=== PATIENT | male | born 1945 | race Caucasian/White ===

== ENCOUNTER 2016-09-07 09:37 | Inpatient (IN) | payer OTHER, MEDICARE ==
[~2016-09-07] VITALS: Ht 170.2 cm; Wt 69.0 kg
[~2016-09-07 09:37] MED LIST: AMLO10TA2 PO; APIX2.5T PO; CARV6.252 PO; DICL75TA PO; FOLI1TAB4 PO; FOLI5CAP PO; HYDR200T3 PO; LISI10TA3 PO; OXYC1TAB36 PO; POTA10TA8 PO
[2016-09-11] MEDS ORDERED: ceFAZolin 2 GM PREMIX 50 ML IV SCH (11:45)
[2016-09-11] MEDS ORDERED: METRONIDAZOLE 500 MG/100 ML ISONTONIC SOLN IV SCH (11:45)
[2016-09-11] MEDS ORDERED: INSULIN HUMAN REGULAR 1,000 UNITS/10 ML VIAL SQ PRN (12:00)
[2016-09-11] MEDS ORDERED: SODIUM CHLORID 0.9% 500 ML IV SCH (12:00)
[2016-09-11] MEDS ORDERED: ePHEDrine/NS 25 MG/5 ML SYR IV ONE (12:00)
[2016-09-11] MEDS ORDERED: ONDANSETRON HCL 4 MG/2 ML VIAL IV PUSH ONE (12:00)
[2016-09-11] MEDS ORDERED: METOPROLOL TARTRATE 25 MG TAB PO PRN (12:00)
[2016-09-11] MEDS ORDERED: NEOSTIGMINE 3 MG/3 ML SYR IV ONE (12:00)
[2016-09-11] MEDS ORDERED: LACTATED RINGER'S 1000 ML INJ 1,000 ML IV ONE (12:00)
[2016-09-11] MEDS ORDERED: PROPOFOL 200 MG/20 ML AMP IV ONE (12:00)
[2016-09-11] MEDS ORDERED: LACTATED RINGER'S 1000 ML IV SCH (12:00)
[2016-09-11 12:35] VITALS: BP 94/58; PULSE 65; RESP 18; TEMP 97.5; O2SAT 98
--- NOTE | 2016-09-11 12:47 | RADRPT ---
EXAM DATE/TIME: 09/11/2016 11:38 [place] COMPARISON: No previous studies available for comparison. INDICATIONS : Evaluate for pneumothorax, pneumonia, or communicable disease. Pre-op for colon resection MEDICAL HISTORY : Hypertension. Smoker. SURGICAL HISTORY : Port placement. ENCOUNTER: Initial ACUITY: 1 day PAIN SCORE: 0/10 LOCATION: Bilateral chest FINDINGS: A single view of the chest demonstrates the lungs to be symmetrically aerated without evidence of mas s, infiltrate or effusion. There is minimal platelike atelectasis in both lung bases. The cardiomedia stinal contours are unremarkable. There is a left-sided [id number]. Osseous structures are intact . CONCLUSION: Minimal bibasilar atelectasis. Otherwise, no acute pulmonary infiltrates. Mario Xavier MD on September 11, 2016 at 12:45 Board Certified Radiologist. This report was verified electronically.
[2016-09-11] MEDS ORDERED: ALVIMOPAN 12 MG CAPSULE ONE (13:13)
[2016-09-11 13:19] LABS: ALT (GPT) 13 U/L (12-78); ANION GAP 4 MEQ/L (5-15); AST (GOT) 17 U/L (15-37); BICARBONATE 30.8 MEQ/L (21.0-32.0); BLOOD UREA NITROGEN 5 MG/DL (7-18); CHLORIDE 107 MEQ/L (98-107); GLOMERULAR FILTRATION RATE 135 ML/MIN (>89); SODIUM (NA) 142 MEQ/L (136-145)
[2016-09-11 13:21] LABS: ALKALINE PHOSPHATASE 95 U/L (45-117); TOTAL BILIRUBIN ADULT 0.7 MG/DL (0.2-1.0)
[2016-09-11] MEDS ORDERED: BUPIVACAINE/EPINEPHRINE 0.25% PF 30 ML VIAL ONE ×2 (13:24→15:13)
[2016-09-11] MEDS ORDERED: ACETAMINOPHEN 1000 MG/100 ML VIAL IV ONE (13:41)
[2016-09-11] MEDS ORDERED: DEXAMETHASONE SOD PHOS 4 MG/ML VIAL ONE (13:41)
[2016-09-11] MEDS ORDERED: fentaNYL CITRATE 250 MCG/5 ML AMP ONE ×2 (13:41→16:51)
[2016-09-11] MEDS ORDERED: MIDAZOLAM HCL 2 MG/2 ML VIAL ONE (13:41)
[2016-09-11] MEDS ORDERED: FAMOTIDINE 20 MG/2 ML VIAL ONE (13:41)
[2016-09-11] MEDS ORDERED: SUGAMMADEX SODIUM 200 MG/2 ML VIAL IV PUSH ONE ×2 (16:32)
[2016-09-11] MEDS ORDERED: *RESP: ALBUTEROL 2.5 MG/3 ML NEB (PRN) PERIprocedural Use ONLY NEB ONE (16:49)
[2016-09-11] MEDS ORDERED: *morphine SULFATE 8 MG/ML PERIprocedure ONLY ONE ×3 (16:50→17:35)
--- NOTE | 2016-09-11 17:02 | PD.OP ---
Operative Report Date of Surgery: Sep 11, 2016 Preoperative Diagnosis: stage 4 colon cancer, ascending colon cancer Postoperative Diagnosis: same Procedure: lap assisted ascending colon resection Anesthesia: general Surgeon: David Peralta Cigar Wrapper(s): Mee Ruelas Operation and Findings: large tumor ascending colon with surrounding desmoplastic reaction. EBL less than 50ml. terminal ileum, appendix, R colon to pathology. David Peralta MD Sep 11, 2016 17:02
[2016-09-11] MEDS ORDERED: Post-op Orders (for Pharmacy) MISC XX ONE (17:15)
[2016-09-11] MEDS ORDERED: MORPHINE SULFATE 4 MG/ML INJ IV PUSH PRN (17:15)
[2016-09-11] MEDS ORDERED: diphenhydrAMINE HCL 25 MG CAP PO PRN (17:15)
[2016-09-11] MEDS ORDERED: SODIUM CHLORIDE 0.9% FLUSH 5 ML FLUSH IVF PRN (17:15)
[2016-09-11] MEDS ORDERED: ACETAMINOPHEN/HYDROcodone 325 MG/5 MG TAB PO PRN ×2 (17:15)
[2016-09-11] MEDS: LACTATED RINGER'S 1000 ML INJ 1,000 ML IV SCH (17:45)
[2016-09-11] MEDS: KETOROLAC TROMETHAMINE 30 MG/ML (IVP) VIAL IVP SCH (17:54)
[2016-09-11] MEDS ORDERED: DO NOT ADM ANY ANTICOAGULANT DRUGS XX PRN (18:15)
[2016-09-11] MEDS: oxyCODONE/ACETAMINOPHEN 10 MG/325 MG TAB PO PRN (18:22)
[2016-09-11 20:00] VITALS: BP 113/70; PULSE 67; RESP 20; TEMP 97.8; O2SAT 95
[2016-09-11 20:07] VITALS: O2SAT 95
[2016-09-11] MEDS: ALVIMOPAN 12 MG CAPSULE PO SCH (20:54)
[2016-09-11] MEDS: CARVEDILOL 6.25 MG TAB PO SCH (20:54)
[2016-09-11] MEDS: SODIUM CHLORIDE 0.9% FLUSH 5 ML FLUSH IVF SCH (20:54)
[2016-09-11] MEDS: DOCUSATE SODIUM 100 MG CAP PO SCH (20:54)
[2016-09-11] MEDS: ACETAMINOPHEN 1000 MG/100 ML VIAL IV SCH (20:54)
[2016-09-12] VITALS: BP 118/68; PULSE 72; RESP 20; TEMP 96.6; O2SAT 96
[2016-09-12] MEDS: KETOROLAC TROMETHAMINE 30 MG/ML (IVP) VIAL IVP SCH ×5 (00:11→23:07)
[2016-09-12] MEDS: ACETAMINOPHEN 1000 MG/100 ML VIAL IV SCH ×4 (02:45→22:36)
[2016-09-12] MEDS: LACTATED RINGER'S 1000 ML INJ 1,000 ML IV SCH (04:19)
[2016-09-12 06:26] LABS: BASOPHIL % 0.3 % (0.0-2.0); HEMO FLAGS DIFF FINAL; LYMPH % 11.5 % (9.0-44.0); LYMPHOCYTE # 1.2 TH/MM3 (1.0-4.8); MEAN CELL VOLUME 95.4 FL (80.0-100.0); MEAN CORPUSCULAR HGB CONC 33.6 % (32.0-36.0); MONO % 12.6 % (0.0-8.0); NEUT % 75.6 % (16.0-70.0); PLATELET COUNT 129 TH/MM3 (150-450); RED BLOOD COUNT 4.41 MIL/MM3 (4.50-5.90); RED CELL DISTRIBUTION WIDTH 14.9 % (11.6-17.2); WHITE BLOOD COUNT 10.6 TH/MM3 (4.0-11.0)
[2016-09-12 06:56] LABS: BICARBONATE 25.9 MEQ/L (21.0-32.0); POTASSIUM 4.1 MEQ/L (3.5-5.1)
--- NOTE | 2016-09-12 07:47 | HHI.PR ---
Subjective Subjective Notes rested well overnight. Had to have daniel placed for urinary retention. No nausea. Objective Vitals/I&O Vital Signs Date Time Temp Pulse Resp B/P Pulse Ox O2 Delivery O2 Flow Rate FiO2 09/12/16 00:00 96.6 72 20 118/68 96 09/11/16 20:07 Nasal Cannula 2.00 Labs Laboratory Tests Test 09/11/16 09/12/16 12:30 05:48 Sodium Level 142 139 Potassium Level 4.0 4.1 Chloride Level 107 105 Carbon Dioxide Level 30.8 25.9 Anion Gap 4 8 Blood Urea Nitrogen 5 8 Creatinine 0.59 0.56 Estimat Glomerular Filtration 135 143 Rate Random Glucose 99 120 Calcium Level 8.9 8.2 Total Bilirubin 0.7 Aspartate Amino Transf 17 (AST/SGOT) Alanine Aminotransferase 13 (ALT/SGPT) Alkaline Phosphatase 95 Total Protein 6.9 Albumin 3.3 Blood Type A POSITIVE Antibody Screen NEGATIVE White Blood Count 10.6 Red Blood Count 4.41 Hemoglobin 14.1 Hematocrit 42.0 Mean Corpuscular Volume 95.4 Mean Corpuscular Hemoglobin 32.0 Mean Corpuscular Hemoglobin 33.6 Concent Red Cell Distribution Width 14.9 Platelet Count 129 Mean Platelet Volume 8.1 Neutrophils (%) (Auto) 75.6 Lymphocytes (%) (Auto) 11.5 Monocytes (%) (Auto) 12.6 Eosinophils (%) (Auto) 0.0 Basophils (%) (Auto) 0.3 Neutrophils # (Auto) 8.0 Lymphocytes # (Auto) 1.2 Monocytes # (Auto) 1.3 Eosinophils # (Auto) 0.0 Basophils # (Auto) 0.0 CBC Comment DIFF FINAL Differential Comment Cardiovascular: Regular Lungs: Clear Abdomen: Non-distended, Other (incisions clean and dry, minimal dried bloody drainage from umbilicus.), Post-op tenderness Extremities: No edema, Perfused, SCD's on, Other (LUE IV infiltration site soft , mildly ecchymotic, non tender, non erythematous.) A/P Assessment and Plan Postop Lap assisted ascending colon resection. Stage 4 colon cancer, post chemotherapy. Walk halls today. Possible removal daniel in AM. Diet as tolerated. David Peralta MD Sep 12, 2016 07:47
[2016-09-12 08:00] VITALS: BP 140/63; PULSE 64; RESP 18; TEMP 97.3; O2SAT 96
[2016-09-12] MEDS: HYDROXYCHLOROQUINE SULFATE 200 MG TAB PO SCH (08:24)
[2016-09-12] MEDS: LISINOPRIL 10 MG TAB PO SCH (08:24)
[2016-09-12] MEDS: CARVEDILOL 6.25 MG TAB PO SCH ×2 (08:24→22:33)
[2016-09-12] MEDS: DOCUSATE SODIUM 100 MG CAP PO SCH ×2 (08:25→22:33)
[2016-09-12] MEDS: DICLOFENAC SODIUM 75 MG DELAYED RELEASE TAB PO SCH (08:25)
[2016-09-12] MEDS: ALVIMOPAN 12 MG CAPSULE PO SCH ×2 (08:25→22:33)
[2016-09-12] MEDS: POTASSIUM CHLORIDE 10 MEQ CONTROLLED RELEASE TAB PO SCH (08:26)
[2016-09-12] MEDS: SODIUM CHLORIDE 0.9% FLUSH 5 ML FLUSH IVF SCH ×2 (08:27→21:00)
[2016-09-12] MEDS: FOLIC ACID 1 MG TAB PO SCH (08:27)
[2016-09-12 12:00] VITALS: BP 132/75; PULSE 68; RESP 18; TEMP 97.7; O2SAT 97
[2016-09-12] MEDS: ONDANSETRON HCL 4 MG/2 ML VIAL IV PRN (14:59)
[2016-09-12] MEDS: oxyCODONE/ACETAMINOPHEN 10 MG/325 MG TAB PO PRN (15:07)
--- NOTE | 2016-09-12 15:29 | EKG ---
Date Performed: 09/11/2016 Time Performed: 11:42:58 PTAGE: 71 years EKG: Sinus rhythm Compared to previous tracing, PVCs are no longer present NORMAL ECG PREVIOUS TRACING : 12/14/2013 17.48 DOCTOR: Kenzie Guido Interpretating Date/Time 09/12/2016 15:28:24
[2016-09-12] MEDS: ENOXAPARIN SODIUM 40 MG/0.4 ML SYRINGE SQ SCH (17:30)
[2016-09-12 19:51] VITALS: O2SAT 93
[2016-09-12 20:00] VITALS: BP 136/72; PULSE 87; RESP 19; TEMP 97.6; O2SAT 95
[2016-09-12 23:49] VITALS: BP 119/69; PULSE 75; RESP 22; TEMP 97.6; O2SAT 95
[2016-09-13] MEDS: ACETAMINOPHEN 1000 MG/100 ML VIAL IV SCH ×5 (02:07→23:48)
[2016-09-13] MEDS: ONDANSETRON HCL 4 MG/2 ML VIAL IV PRN ×2 (02:07→10:55)
[2016-09-13] MEDS: LACTATED RINGER'S 1000 ML INJ 1,000 ML IV SCH ×3 (02:08→18:11)
[2016-09-13] MEDS: KETOROLAC TROMETHAMINE 30 MG/ML (IVP) VIAL IVP SCH ×4 (05:09→23:47)
[2016-09-13 08:00] VITALS: BP 158/74; PULSE 95; RESP 18; TEMP 98; O2SAT 95
[2016-09-13 08:05] VITALS: O2SAT 95
[2016-09-13] MEDS: FOLIC ACID 1 MG TAB PO SCH (08:32)
[2016-09-13] MEDS: CARVEDILOL 6.25 MG TAB PO SCH ×2 (08:32→19:59)
[2016-09-13] MEDS: LISINOPRIL 10 MG TAB PO SCH (08:33)
[2016-09-13] MEDS: DICLOFENAC SODIUM 75 MG DELAYED RELEASE TAB PO SCH (08:33)
[2016-09-13] MEDS: HYDROXYCHLOROQUINE SULFATE 200 MG TAB PO SCH (08:33)
[2016-09-13] MEDS: ALVIMOPAN 12 MG CAPSULE PO SCH ×2 (08:33→20:00)
[2016-09-13] MEDS: POTASSIUM CHLORIDE 10 MEQ CONTROLLED RELEASE TAB PO SCH (08:33)
[2016-09-13] MEDS: DOCUSATE SODIUM 100 MG CAP PO SCH ×2 (08:34→19:59)
[2016-09-13] MEDS: SODIUM CHLORIDE 0.9% FLUSH 5 ML FLUSH IVF SCH ×2 (08:34→19:59)
[2016-09-13 12:00] VITALS: BP 145/80; PULSE 81; RESP 18; TEMP 97.8; O2SAT 98
[2016-09-13] MEDS ORDERED: ALUMINUM/MAGNESIUM/SIMETH 30 ML CUP PO PRN (12:15)
--- NOTE | 2016-09-13 12:18 | HHI.PR ---
Subjective Subjective Notes pt feels miserable. "threw up all night" c/o reflux. Had a BM. Can't eat, belching. Objective Vitals/I&O Vital Signs Date Time Temp Pulse Resp B/P Pulse Ox O2 Delivery O2 Flow Rate FiO2 09/13/16 09:02 17 09/13/16 08:05 95 21 09/13/16 08:00 98.0 95 158/74 09/11/16 20:07 Nasal Cannula 2.00 Abdomen: Non-distended, Non-tender, Other (soft, minimal bloody drainage on dressing.) Extremities: No edema, Perfused A/P Assessment and Plan Postop Lap assisted ascending colon resection. Stage 4 colon cancer, post chemotherapy. Maalox, erythromycin, protonix. SAL daniel. check electrolytes. David Peralta MD Sep 13, 2016 12:18
[2016-09-13] MEDS: PANTOPRAZOLE SODIUM 40 MG VIAL IV PUSH SCH (12:56)
[2016-09-13] MEDS: ERYTHROMYCIN INJ 250 MG in SODIUM CHLORIDE 0.9% INJ 100 ML IV SCH ×3 (13:51→23:47)
--- NOTE | 2016-09-13 14:57 | HHI.HP ---
History of Present Illness Service Primary Care Primary Care Physician Kostas Paulino, DO Admission Diagnosis Colon cancer with mets to liver, lung Diagnoses: (1) Adenocarcinoma of colon metastatic to liver Diagnosis: Principal (2) Arterial vascular disease Diagnosis: Secondary (3) Chronic alcohol abuse Diagnosis: Secondary (4) Deep vein thrombosis of left lower extremity Diagnosis: Secondary (5) Hyperlipidemia Diagnosis: Secondary (6) Peripheral neuropathy Diagnosis: Secondary (7) Tobacco abuse Diagnosis: Secondary (8) Chronic obstructive pulmonary disease Diagnosis: Secondary (9) Hypertension Diagnosis: Secondary History of Present Illness Admitted electively for laparoscopic colon resection for mass. He has a history of metastatic colon adenocardinoma with involvement of liver and lungs, now s/p chemotherapy and radiation managed by Dr. Baker. He has undergone surgery and is recovering well. Dr. Paulino's service has been consulted for medical management. Review of Systems Constitutional: COMPLAINS OF: Weight loss Gastrointestinal: COMPLAINS OF: Abdominal pain, Nausea, Vomiting, Anorexia Past Family Social History Allergies: Coded Allergies: No Known Allergies (Verified , 09/10/16) Past Medical History Metastatic Adenocarcinoma of the colon with mets to liver and lung Chronic tobacco abuse Recurrent DVT on Eliquis(held for surgery) Htn Chronic ETOH abuse Peripheral neuropathy Hyperlipidemia Frequent Falls. Past Surgical History Ascending colon resection IVC filter placement Tonsillectomy Adenoidectomy Reported Medications Current Medications Medications (Trade) Dose Ordered Sig/Lee Ann Route Start Time Stop Time Status Last Admin (Lr 1000 ml Inj) 1,000 ml @ 100 mls/hr Q10H IV 09/11/16 17:02 09/13/16 02:08 (NS Flush) 2 ml UNSCH PRN IVF 09/11/16 17:15 09/12/16 17:30 (NS Flush) 2 ml BID IVF 09/11/16 21:00 (Toradol Inj) 15 mg Q6H IVP 09/11/16 17:15 09/16/16 17:14 09/13/16 10:55 (Morphine Inj) 4 mg Q2H PRN IV PUSH 09/11/16 17:15 (Zofran Inj) 4 mg Q4H PRN IV 09/11/16 17:15 09/13/16 10:55 (Colace) 100 mg BID PO 09/11/16 21:00 09/12/16 22:33 (Benadryl) 25 mg Q6H PRN PO 09/11/16 17:15 (Lovenox Inj) 40 mg Q24H SQ 09/12/16 16:00 09/12/16 17:30 (Ofirmev Inj) 1,000 mg Q6H IV 09/11/16 20:00 09/13/16 13:50 (Norvasc) 10 mg DAILY PO 09/12/16 09:00 09/13/16 08:33 (Coreg) 6.25 mg BID PO 09/11/16 21:00 09/13/16 08:32 (Voltaren Dr) 75 mg DAILY PO 09/12/16 09:00 09/13/16 08:33 (Folate) 5 mg DAILY PO 09/12/16 09:00 09/13/16 08:32 (Plaquenil) 200 mg DAILY PO 09/12/16 09:00 09/13/16 08:33 (Prinivil) 10 mg DAILY PO 09/12/16 09:00 09/13/16 08:33 (Percocet 10-325 Mg) 1 tab Q4H PRN PO 09/11/16 17:15 09/12/16 15:07 (KCl) 10 meq DAILY PO 09/12/16 09:00 09/13/16 08:33 Alvimopan 12 mg 12 mg Q12HR PO 09/11/16 21:00 09/13/16 08:33 (Erythromycin Inj/NS Inj) 100 ml @ 100 mls/hr Q6H IV 09/13/16 14:00 09/13/16 13:51 (Mag-Al Plus Susp Liq) 30 ml Q6H PRN PO 09/13/16 12:15 09/13/16 12:58 (Protonix Inj) 40 mg DAILY IV PUSH 09/13/16 12:15 09/13/16 12:56 Family History History of CAD, brother with diabetes Social History Smoked 1-1/2 PPD for most of his life. 4-6 alcoholic drinks per night. Physical Exam Vital Signs Vital Signs Date Time Temp Pulse Resp B/P Pulse Ox O2 Delivery O2 Flow Rate FiO2 09/13/16 14:20 16 09/13/16 12:00 97.8 81 18 145/80 98 09/13/16 11:55 18 09/13/16 08:05 95 21 09/13/16 08:00 98.0 95 18 158/74 95 09/12/16 23:49 97.6 75 22 119/69 95 09/12/16 20:00 97.6 87 19 136/72 95 09/12/16 19:51 93 21 09/12/16 16:07 18 Physical Exam GENERAL: This is a well-nourished, well-developed patient, in mild distress. SKIN: No rashes, ecchymoses or lesions. Cool and dry. Abdominal incisions clean , dry. HEAD: Atraumatic. Normocephalic. No temporal or scalp tenderness. EYES: Pupils equal round and reactive. Extraocular motions intact. No scleral icterus. No injection or drainage. ENT: Nose without bleeding, purulent drainage or septal hematoma. Throat without erythema, tonsillar hypertrophy or exudate. Uvula midline. Airway patent. NECK: Trachea midline. No JVD or lymphadenopathy. Supple, nontender, no meningeal signs. CARDIOVASCULAR: Regular rate and rhythm without murmurs, gallops, or rubs. RESPIRATORY: Clear to auscultation. Breath sounds equal bilaterally. No wheezes , rales, or rhonchi. GASTROINTESTINAL: Abdomen soft, tender, nondistended. MUSCULOSKELETAL: Extremities without clubbing, cyanosis, or edema. No joint tenderness, effusion, or edema noted. No calf tenderness. Negative Homans sign bilaterally. NEUROLOGICAL: Awake and alert. Result Diagram: 09/12/1654709/12/16547 Assessment and Plan Problem List: (1) Deep vein thrombosis of left lower extremity Status: Chronic Plan: Previously on Eliquis. Resume per direction from Dr. Peralta and Dr. Baker. (2) Hyperlipidemia Status: Chronic Plan: HH diet. No statin d/t liver involvement. (3) Peripheral neuropathy Status: Chronic (4) Chronic obstructive pulmonary disease Status: Chronic Plan: Stable on RA. (5) Hypertension Status: Chronic Plan: Stable on meds. (6) Adenocarcinoma of colon metastatic to liver Status: Chronic Plan: S/P colon resection by Dr. Peralta. Having some nausea/vomiting/ cramping. Assessment and Plan HHC ordered by Dr. Peralta. Pending clearance from surgery for d/c home. A&P d /w Dr. Paulino, RN, pt. Problem Qualifiers (1) Hyperlipidemia: Qualified Code: E78.2 - Mixed hyperlipidemia (2) Peripheral neuropathy: Qualified Code: G62.9 - Peripheral polyneuropathy (3) Chronic obstructive pulmonary disease: (4) Hypertension: Qualified Code: I10 - Essential hypertension Ade Helton Sep 13, 2016 14:57
[2016-09-13 16:00] VITALS: BP 148/77; PULSE 80; RESP 18; TEMP 98; O2SAT 97
[2016-09-13] MEDS: ENOXAPARIN SODIUM 40 MG/0.4 ML SYRINGE SQ SCH (16:46)
[2016-09-13 20:00] VITALS: BP 130/69; PULSE 89; RESP 18; TEMP 96.9; O2SAT 98
[2016-09-13 22:08] LABS: AUTOMATED NEUTROPHIL # 8.1 TH/MM3 (1.8-7.7); BASOPHIL % 0.2 % (0.0-2.0); EOSINOPHIL # 0.1 TH/MM3 (0-0.4); EOSINOPHIL % 0.8 % (0.0-4.0); HEMATOCRIT 41.4 % (39.0-51.0); HEMO FLAGS DIFF FINAL; LYMPH % 12.8 % (9.0-44.0); LYMPHOCYTE # 1.4 TH/MM3 (1.0-4.8); MEAN CELL VOLUME 93.6 FL (80.0-100.0); MEAN CORPUSCULAR HEMOGLOBIN 32.5 PG (27.0-34.0); MEAN CORPUSCULAR HGB CONC 34.7 % (32.0-36.0); MONO % 11.5 % (0.0-8.0); NEUT % 74.7 % (16.0-70.0); PLATELET COUNT 137 TH/MM3 (150-450); RED BLOOD COUNT 4.43 MIL/MM3 (4.50-5.90); RED CELL DISTRIBUTION WIDTH 14.2 % (11.6-17.2); WHITE BLOOD COUNT 10.8 TH/MM3 (4.0-11.0)
[2016-09-13 22:22] LABS: BICARBONATE 27.5 MEQ/L (21.0-32.0); MAGNESIUM 1.7 MG/DL (1.5-2.5); POTASSIUM 3.2 MEQ/L (3.5-5.1)
[2016-09-14] VITALS: BP 128/65; PULSE 82; RESP 18; TEMP 97.8; O2SAT 97
[2016-09-14] MEDS: KETOROLAC TROMETHAMINE 30 MG/ML (IVP) VIAL IVP SCH ×4 (04:38→22:08)
[2016-09-14] MEDS: LACTATED RINGER'S 1000 ML INJ 1,000 ML IV SCH ×2 (04:39→15:02)
--- NOTE | 2016-09-14 07:32 | HHI.PR ---
Subjective Subjective Notes Feels better, less GERD, still reluctant to eat. Objective Vitals/I&O Vital Signs Date Time Temp Pulse Resp B/P Pulse Ox O2 Delivery O2 Flow Rate FiO2 09/14/16 00:00 97.8 82 18 128/65 97 09/13/16 08:05 21 09/11/16 20:07 Nasal Cannula 2.00 Labs Laboratory Tests Test 09/13/16 21:00 White Blood Count 10.8 Red Blood Count 4.43 Hemoglobin 14.4 Hematocrit 41.4 Mean Corpuscular Volume 93.6 Mean Corpuscular Hemoglobin 32.5 Mean Corpuscular Hemoglobin 34.7 Concent Red Cell Distribution Width 14.2 Platelet Count 137 Mean Platelet Volume 8.4 Neutrophils (%) (Auto) 74.7 Lymphocytes (%) (Auto) 12.8 Monocytes (%) (Auto) 11.5 Eosinophils (%) (Auto) 0.8 Basophils (%) (Auto) 0.2 Neutrophils # (Auto) 8.1 Lymphocytes # (Auto) 1.4 Monocytes # (Auto) 1.2 Eosinophils # (Auto) 0.1 Basophils # (Auto) 0.0 CBC Comment DIFF FINAL Differential Comment Sodium Level 135 Potassium Level 3.2 Chloride Level 100 Carbon Dioxide Level 27.5 Anion Gap 8 Blood Urea Nitrogen 5 Creatinine 0.50 Estimat Glomerular Filtration 163 Rate Random Glucose 111 Calcium Level 8.1 Magnesium Level 1.7 Cardiovascular: Regular Lungs: Clear Abdomen: Non-distended, Other (incisions all healing well beneath steristrips, no erythema, minimal blood tinged drainage at umbilicus. ), Post-op tenderness, BS normal Extremities: No edema, Perfused A/P Assessment and Plan Postop Lap assisted ascending colon resection. Stage 4 colon cancer, post chemotherapy. Voiding urine on own. Low K, supplement. Reviewed pathology and provided copies to bedside. Home when he tolerates po well. David Peralta MD Sep 14, 2016 07:32
--- NOTE | 2016-09-14 07:34 | HHI.PR ---
Subjective Remarks Patient seen at bedside this am. Reported some nausea and acid reflux yesterday. Objective Vital Signs Date Time Temp Pulse Resp B/P Pulse Ox O2 Delivery O2 Flow Rate FiO2 09/14/16 00:00 97.8 82 18 128/65 97 09/13/16 20:00 96.9 89 18 130/69 98 09/13/16 17:46 16 09/13/16 16:00 98.0 80 18 148/77 97 09/13/16 14:20 16 09/13/16 12:00 97.8 81 18 145/80 98 09/13/16 08:05 95 21 09/13/16 08:00 98.0 95 18 158/74 95 I/O 09/13/16 09/13/16 09/13/16 09/14/16 09/14/16 09/14/16 07:00 15:00 23:00 07:00 15:00 23:00 Intake Total 1009 ml 847 ml 833 ml 1003 ml Output Total 1200 ml 1451 ml 300 ml 775 ml Balance -191 ml -604 ml 533 ml 228 ml Intake Oral 240 ml 240 ml 240 ml IV Total 769 ml 847 ml 593 ml 763 ml Output Urine Total 1200 ml 1450 ml 300 ml 775 ml Stool Total 1 ml # Bowel Movements 0 0 0 Result Diagram: 09/13/16 2100 09/13/16 2100 Other Results GENERAL: Alert and oriented Well-nourished, well developed patient SKIN: Warm and dry. HEAD: Normocephalic. EYES: No scleral icterus. No injection or drainage. NECK: Supple, trachea midline. No JVD or lymphadenopathy. CARDIOVASCULAR: Regular rate and rhythm without murmurs, gallops, or rubs. RESPIRATORY: Breath sounds equal bilaterally. No accessory muscle use. GASTROINTESTINAL: Abdomen soft, non-tender, nondistended. Incision site wnl. Binder on. MUSCULOSKELETAL: No cyanosis, or edema. BACK: Nontender without obvious deformity. No CVA tenderness. Medications and IVs Current Medications Medications (Trade) Dose Ordered Sig/Lee Ann Route Start Time Stop Time Status Last Admin (Lr 1000 ml Inj) 1,000 ml @ 100 mls/hr Q10H IV 09/11/16 17:02 09/14/16 04:39 (NS Flush) 2 ml UNSCH PRN IVF 09/11/16 17:15 09/12/16 17:30 (NS Flush) 2 ml BID IVF 09/11/16 21:00 09/14/16 08:28 (Toradol Inj) 15 mg Q6H IVP 09/11/16 17:15 09/16/16 17:14 09/14/16 16:29 (Morphine Inj) 4 mg Q2H PRN IV PUSH 09/11/16 17:15 (Zofran Inj) 4 mg Q4H PRN IV 09/11/16 17:15 09/13/16 10:55 (Colace) 100 mg BID PO 09/11/16 21:00 09/12/16 22:33 (Benadryl) 25 mg Q6H PRN PO 09/11/16 17:15 (Lovenox Inj) 40 mg Q24H SQ 09/12/16 16:00 09/14/16 16:29 (Ofirmev Inj) 1,000 mg Q6H IV 09/11/16 20:00 09/14/16 13:39 (Norvasc) 10 mg DAILY PO 09/12/16 09:00 09/14/16 08:27 (Coreg) 6.25 mg BID PO 09/11/16 21:00 09/14/16 08:27 (Voltaren Dr) 75 mg DAILY PO 09/12/16 09:00 09/14/16 08:26 (Folate) 5 mg DAILY PO 09/12/16 09:00 09/14/16 08:27 (Plaquenil) 200 mg DAILY PO 09/12/16 09:00 09/14/16 08:26 (Prinivil) 10 mg DAILY PO 09/12/16 09:00 09/14/16 08:27 (Percocet 10-325 Mg) 1 tab Q4H PRN PO 09/11/16 17:15 09/12/16 15:07 (KCl) 10 meq DAILY PO 09/12/16 09:00 09/14/16 08:26 Alvimopan 12 mg 12 mg Q12HR PO 09/11/16 21:00 09/14/16 08:27 (Erythromycin Inj/NS Inj) 100 ml @ 100 mls/hr Q6H IV 09/13/16 14:00 09/14/16 13:40 (Mag-Al Plus Susp Liq) 30 ml Q6H PRN PO 09/13/16 12:15 09/13/16 12:58 (Protonix Inj) 40 mg DAILY IV PUSH 09/13/16 12:15 09/14/16 08:28 Assessment and Plan Problem List: (1) Adenocarcinoma of colon metastatic to liver Status: Acute Plan: S/P colon resection by Dr. Peralta. Incision sites look clean and dry. (2) Hypokalemia Status: Acute Plan: Potassium 3.2 this AM. Replacement ordered. Recheck in AM (3) Hypertension Status: Chronic Plan: Continue current medication regimen. Blood pressure well controlled (4) GERD (gastroesophageal reflux disease) Status: Acute Plan: On Protonix. Assessment and Plan Assessment and plan discussed with Dr. Paulino Problem Qualifiers (1) Hypertension: Qualified Code: I10 - Essential hypertension Fátima Bragg Sep 14, 2016 07:34
[2016-09-14] MEDS ORDERED: POTASSIUM CHLORIDE 10 MEQ CONTROLLED RELEASE TAB PO ONE (07:45)
[2016-09-14 08:00] VITALS: BP 125/63; PULSE 79; RESP 19; TEMP 98.4; O2SAT 96
[2016-09-14] MEDS: POTASSIUM CHLOR 20 MEQ PREMIX 100 ML IV SCH ×2 (08:25→08:38)
[2016-09-14] MEDS: POTASSIUM CHLORIDE 10 MEQ CONTROLLED RELEASE TAB PO SCH (08:26)
[2016-09-14] MEDS: HYDROXYCHLOROQUINE SULFATE 200 MG TAB PO SCH (08:26)
[2016-09-14] MEDS: DICLOFENAC SODIUM 75 MG DELAYED RELEASE TAB PO SCH (08:26)
[2016-09-14] MEDS: ACETAMINOPHEN 1000 MG/100 ML VIAL IV SCH ×3 (08:26→20:33)
[2016-09-14] MEDS: CARVEDILOL 6.25 MG TAB PO SCH ×2 (08:27→20:34)
[2016-09-14] MEDS: DOCUSATE SODIUM 100 MG CAP PO SCH ×2 (08:27→20:34)
[2016-09-14] MEDS: ALVIMOPAN 12 MG CAPSULE PO SCH ×2 (08:27→20:35)
[2016-09-14] MEDS: FOLIC ACID 1 MG TAB PO SCH (08:27)
[2016-09-14] MEDS: LISINOPRIL 10 MG TAB PO SCH (08:27)
[2016-09-14] MEDS: ERYTHROMYCIN INJ 250 MG in SODIUM CHLORIDE 0.9% INJ 100 ML IV SCH ×3 (08:28→20:32)
[2016-09-14] MEDS: SODIUM CHLORIDE 0.9% FLUSH 5 ML FLUSH IVF SCH ×2 (08:28→20:33)
[2016-09-14] MEDS: PANTOPRAZOLE SODIUM 40 MG VIAL IV PUSH SCH (08:28)
[2016-09-14 12:00] VITALS: BP 116/61; PULSE 73; RESP 18; TEMP 96.9; O2SAT 98
[2016-09-14 16:00] VITALS: BP 116/63; PULSE 84; RESP 17; TEMP 98; O2SAT 99
[2016-09-14] MEDS: ENOXAPARIN SODIUM 40 MG/0.4 ML SYRINGE SQ SCH (16:29)
--- NOTE | 2016-09-14 18:09 | MP ---
cc: JONNA CAMPO M.D. DATE OF SURGERY: 09/11/2016 PREOPERATIVE DIAGNOSIS Stage IV colon cancer, ascending colon cancer. POSTOPERATIVE DIAGNOSES Stage IV colon cancer, ascending colon cancer. PROCEDURE Laparoscopic-assisted ascending colon resection. SURGEON Dr. Jonna Campo. CLIMATOLOGY TEACHER Dr. Chan Dixon SECOND CLIMATOLOGY TEACHER LEVY Cline. ANESTHESIA General. INDICATIONS This is a very pleasant 71-year-old gentleman a patient of Dr. Octavio Baker who was diagnosed with a stage IV colon cancer with liver and lung metastases. He has undergone neoadjuvant chemotherapy with decrease in the size of his lung and liver mets. He continues to have a large ascending colonic tumor and concern was made for bleeding or obstruction. Recommendations are made for laparoscopic-assisted possible open resection. INTRAOPERATIVE FINDINGS Large tumor in the ascending colon with surrounding desmoplastic reaction. Terminal ileum, appendix and right colon sent to pathology. Primary anastomosis small bowel to transverse colon created. Estimated blood loss less than 50 mL. DESCRIPTION OF PROCEDURE IN DETAIL The patient identified as Jorge Marie, taken to the operating room and placed in supine position. Sequential compression devices were placed on bilateral lower extremities. Following induction of adequate general endotracheal anesthesia, the patient's abdomen was prepped and draped in the usual sterile fashion with Betadine. Timeout procedure was performed. Following completion of timeout procedure to everyone's satisfaction within the room, 0.25% Marcaine with epinephrine was placed at each incision site. A supraumbilical small transverse incision was made with a scalpel after instillation of local anesthetic. Dissection continued to the posterior level of the midline fascia. The anterior fascia slightly right of midline was incised laterally. The underlying rectus muscle was swept laterally and entry into peritoneal cavity through the posterior rectus fascia was performed with the surgeon's finger. The [employer] balloon Joi trocar placed in the peritoneal cavity, its balloon inflated with CO2 insufflation to a level of 15 mmHg ensued. Three upper abdominal 5 mm trocars were placed in the peritoneal cavity under direct laparoscopic view, two in the upper midline right, one in the right lateral abdomen. Attention was turned first to mobilization of the right colon, this was performed by using the harmonic scalpel. There was significant desmoplastic reaction with dense adherence of the ascending colon to the peritoneal sidewall, some peritoneum and extraperitoneal fat was resected along with the specimen. To mobilize the right colon. The appendix was somewhat dilated and densely adherent as well. Care was taken to keep the dissection directly on the appendix and the cecal wall in order to minimize the risk of ureteral injury. Attention was then turned to selecting a spot slightly right of the middle colic vessels and the omentum was released from the colon, this location divided and the colon was mobilized around the hepatic flexure. The transverse colon and omentum was adherent to the gallbladder and this was released using the harmonic scalpel. Continued dissection allowed for complete mobilization of the transverse colon and the hepatic flexure off of the underlying duodenum which was uninjured and superficial to the Gerota's fascia overlying the kidney. Once complete mobilization to the midline had occurred, a site for incision was selected in the upper right abdomen. A transverse incision was proposed and local anesthetic was placed. A skin incision was carried out with a scalpel and hemostasis controlled with electrocautery. Dissection continued posteriorly through the right rectus fascia and the muscle, the posterior fascia was entered and pneumoperitoneum was released. Attention was turned first to division of the terminal ileum. This was performed after creating a window using the linear cutting stapling device. The mesentery was mobilized with the harmonic scalpel. Attention was then turned to the distal division in the transverse colon proximal to the middle colic vessels. Again a window was created with electrocautery and the linear cutting stapling device was used to divide the colon. The mesentery was then mobilized using a combination of the harmonic scalpel and on named blood vessels Shraddha clamps, scissors and 2-0 silk ties. Specimen was removed in its entirety and passed off the field for pathologic evaluation. The right side of the abdomen was irrigated copiously with saline. Small bleeding points were controlled with electrocautery. This was all performed through the wound protection John device. A functional end-to-end, [id number] anastomosis was then performed using the linear cutting stapling device and 3-0 silk sutures to close the end opening. 3-0 silk was used to buttress the end of the staple line. The mesenteric defect was closed with 3-0 silk sutures. The anastomosis returned to the abdominal cavity and covered with the omentum. Two pieces of Seprafilm were placed beneath the incision. The posterior fascia was closed with running #1 PDS suture. Irrigation ensued in the muscular layer. The anterior fascia was closed with running #1 PDS suture. Irrigation ensued of the subcutaneous layer. The supraumbilical fascial defect was closed with interrupted [id number] 0 Vicryl sutures in the posterior and anterior fascial layers. All wound sites were irrigated copiously with saline and skin incisions approximated with 4-0 Monocryl subcuticular sutures. Dressings were applied, Mastisol, inch-brown Steri-Strips, a Primapore was placed over the largest incision. The patient tolerated the procedures without apparent complication. Sponge, needle and instrument counts were correct at the end of the case. MD CLINTON Matthew/BJRichard /4:58 PM /5:15 PM
[2016-09-14 20:00] VITALS: BP 122/65; PULSE 89; RESP 20; TEMP 98.6; O2SAT 95
[2016-09-15] VITALS: BP_SYST 74; PULSE 99; RESP 20; TEMP 97.6; O2SAT 100
[2016-09-15] MEDS: ERYTHROMYCIN INJ 250 MG in SODIUM CHLORIDE 0.9% INJ 100 ML IV SCH ×4 (01:48→20:21)
[2016-09-15] MEDS: ACETAMINOPHEN 1000 MG/100 ML VIAL IV SCH ×3 (01:49→20:00)
[2016-09-15] MEDS: KETOROLAC TROMETHAMINE 30 MG/ML (IVP) VIAL IVP SCH ×4 (04:44→23:27)
[2016-09-15 05:48] LABS: BICARBONATE 24.1 MEQ/L (21.0-32.0); POTASSIUM 3.7 MEQ/L (3.5-5.1)
[2016-09-15 08:00] VITALS: BP 119/67; PULSE 71; RESP 16; TEMP 96.5; O2SAT 98
[2016-09-15] MEDS: DOCUSATE SODIUM 100 MG CAP PO SCH ×2 (09:00→20:22)
[2016-09-15] MEDS: FOLIC ACID 1 MG TAB PO SCH (09:00)
--- NOTE | 2016-09-15 10:35 | HHI.PR ---
Subjective Subjective Notes multiple bms, wants to try some food, pain controlled Objective Vitals/I&O Vital Signs Date Time Temp Pulse Resp B/P Pulse Ox O2 Delivery O2 Flow Rate FiO2 09/15/16 08:00 96.5 71 16 119/67 98 09/13/16 08:05 21 09/11/16 20:07 Nasal Cannula 2.00 Labs Laboratory Tests Test 09/15/16 05:05 Sodium Level 138 Potassium Level 3.7 Chloride Level 106 Carbon Dioxide Level 24.1 Anion Gap 8 Blood Urea Nitrogen 7 Creatinine 0.43 Estimat Glomerular Filtration 194 Rate Random Glucose 80 Calcium Level 8.1 Cardiovascular: Regular Lungs: Clear Abdomen: Non-distended, Post-op tenderness, BS normal Wound Wound : Wound Location: Abdomen Appearance: Clean & Dry Dressing: Dry A/P Assessment and Plan s/p lap ascending colectomy doing well HL IV advance diet Chan Dixon MD Sep 15, 2016 10:35
[2016-09-15] MEDS: DICLOFENAC SODIUM 75 MG DELAYED RELEASE TAB PO SCH (10:39)
[2016-09-15] MEDS: CARVEDILOL 6.25 MG TAB PO SCH ×2 (10:40→20:22)
[2016-09-15] MEDS: LISINOPRIL 10 MG TAB PO SCH (10:40)
[2016-09-15] MEDS: HYDROXYCHLOROQUINE SULFATE 200 MG TAB PO SCH (10:40)
[2016-09-15] MEDS: POTASSIUM CHLORIDE 10 MEQ CONTROLLED RELEASE TAB PO SCH (10:40)
[2016-09-15] MEDS: ALVIMOPAN 12 MG CAPSULE PO SCH ×2 (10:41→20:22)
[2016-09-15] MEDS: PANTOPRAZOLE SODIUM 40 MG VIAL IV PUSH SCH (10:41)
[2016-09-15] MEDS: SODIUM CHLORIDE 0.9% FLUSH 5 ML FLUSH IVF SCH ×2 (10:42→20:21)
--- NOTE | 2016-09-15 11:34 | HHI.PR ---
Subjective Remarks feeling a bit better today moving bowels Objective Vital Signs Date Time Temp Pulse Resp B/P Pulse Ox O2 Delivery O2 Flow Rate FiO2 09/15/16 08:00 96.5 71 16 119/67 98 09/15/16 00:00 97.6 99 20 74/ 100 09/14/16 20:00 98.6 89 20 122/65 95 09/14/16 17:29 16 09/14/16 16:00 98.0 84 17 116/63 99 09/14/16 14:09 18 09/14/16 12:00 96.9 73 18 116/61 98 I/O 09/14/16 09/14/16 09/14/16 09/15/16 09/15/16 09/15/16 07:00 15:00 23:00 07:00 15:00 23:00 Intake Total 1003 ml 1328 ml 934 ml 1037 ml Output Total 775 ml 300 ml Balance 228 ml 1328 ml 934 ml 737 ml Intake Oral 240 ml 385 ml 240 ml 240 ml IV Total 763 ml 943 ml 694 ml 797 ml Output Urine Total 775 ml 300 ml # Voids 4 2 # Bowel Movements 0 3 1 0 Result Diagram: 09/13/16 2100 09/15/16 0505 Objective Remarks GENERAL: SKIN: Warm and dry. HEAD: Atraumatic. Normocephalic. EYES: Pupils equal and round. No scleral icterus. No injection or drainage. ENT: No nasal bleeding or discharge. Mucous membranes pink and moist. NECK: Trachea midline. No JVD. CARDIOVASCULAR: Regular rate and rhythm. RESPIRATORY: No accessory muscle use. Clear to auscultation. Breath sounds equal bilaterally. GASTROINTESTINE soft pos bs healing well MUSCULOSKELETAL: Extremities without clubbing, cyanosis, or edema. No obvious deformities. NEUROLOGICAL: Awake and alert. No obvious cranial nerve deficits. Motor grossly within normal limits. Five out of 5 muscle strength in the arms and legs. Normal speech. PSYCHIATRIC: Appropriate mood and affect; insight and judgment normal. Medications and IVs Current Medications Medications (Trade) Dose Ordered Sig/Lee Ann Route PRN Reason Start Time Stop Time Status Last Admin Dose Admin IV Flush (NS Flush) 2 ml UNSCH PRN IVF FLUSH AFTER USING IV ACCESS 09/11/16 17:15 09/12/16 17:30 IV Flush (NS Flush) 2 ml BID IVF 09/11/16 21:00 09/15/16 10:42 Ketorolac Tromethamine (Toradol Inj) 15 mg Q6H IVP 09/11/16 17:15 09/16/16 17:14 09/15/16 04:44 Morphine Sulfate (Morphine Inj) 4 mg Q2H PRN IV PUSH BREAKTHROUGH PAIN 09/11/16 17:15 Ondansetron HCl (Zofran Inj) 4 mg Q4H PRN IV NAUSEA OR VOMITING 09/11/16 17:15 09/13/16 10:55 Docusate Sodium (Colace) 100 mg BID PO 09/11/16 21:00 09/12/16 22:33 Diphenhydramine HCl (Benadryl) 25 mg Q6H PRN PO ITCHING 09/11/16 17:15 Enoxaparin Sodium (Lovenox Inj) 40 mg Q24H SQ 09/12/16 16:00 09/14/16 16:29 Acetaminophen (Ofirmev Inj) 1,000 mg Q6H IV 09/11/16 20:00 09/15/16 10:39 Amlodipine Besylate (Norvasc) 10 mg DAILY PO 09/12/16 09:00 09/15/16 10:41 Carvedilol (Coreg) 6.25 mg BID PO 09/11/16 21:00 09/15/16 10:40 Diclofenac Sodium (Voltaren Dr) 75 mg DAILY PO 09/12/16 09:00 09/15/16 10:39 Folic Acid (Folate) 5 mg DAILY PO 09/12/16 09:00 09/14/16 08:27 Hydroxychloroquine Sulfate (Plaquenil) 200 mg DAILY PO 09/12/16 09:00 09/15/16 10:40 Lisinopril (Prinivil) 10 mg DAILY PO 09/12/16 09:00 09/15/16 10:40 Oxycodone/ Acetaminophen (Percocet 10-325 Mg) 1 tab Q4H PRN PO PAIN 09/11/16 17:15 09/12/16 15:07 Potassium Chloride (KCl) 10 meq DAILY PO 09/12/16 09:00 09/15/16 10:40 Alvimopan 12 mg 12 mg Q12HR PO 09/11/16 21:00 2/4/17 10:41 Erythromycin Lactobionate/ Sodium Chloride (Erythromycin Inj/NS Inj) 100 ml @ 100 mls/hr Q6H IV 09/13/16 14:00 09/15/16 10:38 Al Hydrox/Mg Hydrox/Simethicone (Mag-Al Plus Susp Liq) 30 ml Q6H PRN PO DYSPEPSIA 09/13/16 12:15 09/13/16 12:58 Pantoprazole Sodium (Protonix Inj) 40 mg DAILY IV PUSH 09/13/16 12:15 09/15/16 10:41 Assessment and Plan Problem List: (1) Liver cancer Status: Acute (2) Chronic alcohol abuse Status: Acute (3) Chronic obstructive pulmonary disease Status: Chronic Discussed Condition With patient and will ask pt to eval and begin to ambulate Discharge Planning home with [facility] Problem Qualifiers (1) Chronic obstructive pulmonary disease: Kostas Paulino DO Sep 15, 2016 11:34
[2016-09-15 12:00] VITALS: BP 137/71; PULSE 85; RESP 17; TEMP 96.9; O2SAT 100
[2016-09-15 16:00] VITALS: BP 110/56; PULSE 71; RESP 18; TEMP 97.5; O2SAT 98
[2016-09-15] MEDS: ENOXAPARIN SODIUM 40 MG/0.4 ML SYRINGE SQ SCH (17:51)
[2016-09-15 20:18] VITALS: BP 116/62; PULSE 69; RESP 18; TEMP 98.2; O2SAT 97
[2016-09-15] MEDS: oxyCODONE/ACETAMINOPHEN 10 MG/325 MG TAB PO PRN (20:22)
[2016-09-16 00:21] VITALS: BP 114/62; PULSE 72; RESP 16; TEMP 96.6; O2SAT 98
[2016-09-16] MEDS: ACETAMINOPHEN 1000 MG/100 ML VIAL IV SCH ×4 (02:00→20:00)
[2016-09-16] MEDS: ERYTHROMYCIN INJ 250 MG in SODIUM CHLORIDE 0.9% INJ 100 ML IV SCH ×4 (02:10→20:04)
[2016-09-16] MEDS: KETOROLAC TROMETHAMINE 30 MG/ML (IVP) VIAL IVP SCH ×2 (04:59→13:48)
[2016-09-16 08:00] VITALS: BP 121/67; PULSE 70; RESP 16; TEMP 97.1; O2SAT 97
[2016-09-16] MEDS: FOLIC ACID 1 MG TAB PO SCH (09:00)
[2016-09-16] MEDS: PANTOPRAZOLE SODIUM 40 MG VIAL IV PUSH SCH (09:36)
[2016-09-16] MEDS: CARVEDILOL 6.25 MG TAB PO SCH ×2 (09:37→20:04)
[2016-09-16] MEDS: DICLOFENAC SODIUM 75 MG DELAYED RELEASE TAB PO SCH (09:37)
[2016-09-16] MEDS: HYDROXYCHLOROQUINE SULFATE 200 MG TAB PO SCH (09:37)
[2016-09-16] MEDS: POTASSIUM CHLORIDE 10 MEQ CONTROLLED RELEASE TAB PO SCH (09:37)
[2016-09-16] MEDS: ALVIMOPAN 12 MG CAPSULE PO SCH ×2 (09:37→20:04)
[2016-09-16] MEDS: LISINOPRIL 10 MG TAB PO SCH (09:38)
--- NOTE | 2016-09-16 10:47 | HHI.PR ---
Subjective Remarks feeling a bit better today moving bowels up and around a bit Objective Vital Signs Date Time Temp Pulse Resp B/P Pulse Ox O2 Delivery O2 Flow Rate FiO2 09/16/16 08:00 97.1 70 16 121/67 97 09/16/16 00:21 96.6 72 16 114/62 98 09/15/16 20:18 98.2 69 18 116/62 97 09/15/16 16:00 97.5 71 18 110/56 98 09/15/16 12:00 96.9 85 17 137/71 100 I/O 09/15/16 09/15/16 09/15/16 09/16/16 09/16/16 09/16/16 07:00 15:00 23:00 07:00 15:00 23:00 Intake Total 1037 ml 120 ml 930 ml 360 ml Output Total 300 ml 1000 ml Balance 737 ml 120 ml -70 ml 360 ml Intake Oral 240 ml 120 ml 780 ml 360 ml IV Total 797 ml 150 ml Output Urine Total 300 ml 1000 ml # Voids 2 2 # Bowel Movements 0 2 2 2 Result Diagram: 09/13/16 2100 09/15/16 0505 Objective Remarks GENERAL: SKIN: Warm and dry. HEAD: Atraumatic. Normocephalic. EYES: Pupils equal and round. No scleral icterus. No injection or drainage. ENT: No nasal bleeding or discharge. Mucous membranes pink and moist. NECK: Trachea midline. No JVD. CARDIOVASCULAR: Regular rate and rhythm. RESPIRATORY: No accessory muscle use. Clear to auscultation. Breath sounds equal bilaterally. GASTROINTESTINE soft pos bs healing well MUSCULOSKELETAL: Extremities without clubbing, cyanosis, or edema. No obvious deformities. NEUROLOGICAL: Awake and alert. No obvious cranial nerve deficits. Motor grossly within normal limits. Five out of 5 muscle strength in the arms and legs. Normal speech. PSYCHIATRIC: Appropriate mood and affect; insight and judgment normal. Medications and IVs Current Medications Medications (Trade) Dose Ordered Sig/Lee Ann Route PRN Reason Start Time Stop Time Status Last Admin Dose Admin IV Flush (NS Flush) 2 ml UNSCH PRN IVF FLUSH AFTER USING IV ACCESS 09/11/16 17:15 09/12/16 17:30 IV Flush (NS Flush) 2 ml BID IVF 09/11/16 21:00 09/15/16 20:21 Ketorolac Tromethamine (Toradol Inj) 15 mg Q6H IVP 09/11/16 17:15 09/16/16 17:14 09/16/16 04:59 Morphine Sulfate (Morphine Inj) 4 mg Q2H PRN IV PUSH BREAKTHROUGH PAIN 09/11/16 17:15 Ondansetron HCl (Zofran Inj) 4 mg Q4H PRN IV NAUSEA OR VOMITING 09/11/16 17:15 09/13/16 10:55 Docusate Sodium (Colace) 100 mg BID PO 09/11/16 21:00 09/12/16 22:33 Diphenhydramine HCl (Benadryl) 25 mg Q6H PRN PO ITCHING 09/11/16 17:15 Enoxaparin Sodium (Lovenox Inj) 40 mg Q24H SQ 09/12/16 16:00 09/15/16 17:51 Acetaminophen (Ofirmev Inj) 1,000 mg Q6H IV 09/11/16 20:00 09/15/16 10:39 Amlodipine Besylate (Norvasc) 10 mg DAILY PO 09/12/16 09:00 09/16/16 09:37 Carvedilol (Coreg) 6.25 mg BID PO 09/11/16 21:00 09/16/16 09:37 Diclofenac Sodium (Voltaren Dr) 75 mg DAILY PO 09/12/16 09:00 09/16/16 09:37 Folic Acid (Folate) 5 mg DAILY PO 09/12/16 09:00 09/14/16 08:27 Hydroxychloroquine Sulfate (Plaquenil) 200 mg DAILY PO 09/12/16 09:00 09/16/16 09:37 Lisinopril (Prinivil) 10 mg DAILY PO 09/12/16 09:00 09/16/16 09:38 Oxycodone/ Acetaminophen (Percocet 10-325 Mg) 1 tab Q4H PRN PO PAIN 09/11/16 17:15 09/15/16 20:22 Potassium Chloride (KCl) 10 meq DAILY PO 09/12/16 09:00 09/16/16 09:37 Alvimopan 12 mg 12 mg Q12HR PO 09/11/16 21:00 09/16/16 09:37 Erythromycin Lactobionate/ Sodium Chloride (Erythromycin Inj/NS Inj) 100 ml @ 100 mls/hr Q6H IV 09/13/16 14:00 09/16/16 09:37 Al Hydrox/Mg Hydrox/Simethicone (Mag-Al Plus Susp Liq) 30 ml Q6H PRN PO DYSPEPSIA 09/13/16 12:15 09/13/16 12:58 Pantoprazole Sodium (Protonix Inj) 40 mg DAILY IV PUSH 09/13/16 12:15 09/16/16 09:36 Assessment and Plan Problem List: (1) Liver cancer Status: Acute (2) Chronic alcohol abuse Status: Acute (3) Chronic obstructive pulmonary disease Status: Chronic Assessment and Plan pt to eval will either send home with C or to snf await surgical clearance Problem Qualifiers (1) Chronic obstructive pulmonary disease: Kostas Paulino DO Sep 16, 2016 10:47
[2016-09-16 12:00] VITALS: BP 114/63; PULSE 68; RESP 17; TEMP 97; O2SAT 97
[2016-09-16] MEDS: DOCUSATE SODIUM 100 MG CAP PO SCH ×2 (13:48→20:04)
[2016-09-16] MEDS: SODIUM CHLORIDE 0.9% FLUSH 5 ML FLUSH IVF SCH ×2 (13:49→20:04)
[2016-09-16 16:00] VITALS: BP 112/57; PULSE 73; RESP 14; TEMP 97.8; O2SAT 97
[2016-09-16] MEDS: ENOXAPARIN SODIUM 40 MG/0.4 ML SYRINGE SQ SCH (19:19)
[2016-09-16] MEDS: oxyCODONE/ACETAMINOPHEN 10 MG/325 MG TAB PO PRN (20:04)
[2016-09-16 20:06] VITALS: BP 116/60; PULSE 68; RESP 18; TEMP 97.7; O2SAT 96
--- NOTE | 2016-09-16 20:36 | HHI.PR ---
Subjective Subjective Notes pt feeling better +bm x6 reg diet po 1260 Objective Vitals/I&O Vital Signs Date Time Temp Pulse Resp B/P Pulse Ox O2 Delivery O2 Flow Rate FiO2 09/16/16 20:06 97.7 68 18 116/60 96 09/13/16 08:05 21 Lungs: Clear Abdomen: Other (incision c/d/i) A/P Assessment and Plan s/p lap ascending colectomy POD 2 doing well c/w advance diet pain control OOB IS decrease motility agents if bms increase Sylvester Bell MD Sep 16, 2016 20:36
[2016-09-16 23:55] VITALS: BP 109/65; PULSE 79; RESP 18; TEMP 96.3; O2SAT 96
[2016-09-17] MEDS: ACETAMINOPHEN 1000 MG/100 ML VIAL IV SCH ×3 (02:00→13:12)
[2016-09-17] MEDS: ERYTHROMYCIN INJ 250 MG in SODIUM CHLORIDE 0.9% INJ 100 ML IV SCH ×3 (03:35→13:12)
--- NOTE | 2016-09-17 07:11 | HHI.PR ---
Subjective Remarks Patient seen at bedside this am. Reported that he tolerating his diet and having regular BM Objective Vital Signs Date Time Temp Pulse Resp B/P Pulse Ox O2 Delivery O2 Flow Rate FiO2 09/16/16 23:55 96.3 79 18 109/65 96 09/16/16 20:06 97.7 68 18 116/60 96 09/16/16 16:00 97.8 73 14 112/57 97 09/16/16 12:00 97.0 68 17 114/63 97 09/16/16 08:00 97.1 70 16 121/67 97 I/O 09/16/16 09/16/16 09/16/16 09/17/16 09/17/16 09/17/16 07:00 15:00 23:00 07:00 15:00 23:00 Intake Total 360 ml 480 ml 580 ml 480 ml Output Total 400 ml Balance 360 ml 480 ml 580 ml 80 ml Intake Oral 360 ml 480 ml 480 ml 380 ml IV Total 100 ml 100 ml Output Urine Total 400 ml # Voids 2 3 3 # Bowel Movements 2 3 2 1 Result Diagram: 09/13/16 2100 09/15/16 0505 Objective Remarks GENERAL: Alert and oriented SKIN: Warm and dry. HEAD: Normocephalic. EYES: No scleral icterus. No injection or drainage. NECK: Supple, trachea midline. No JVD or lymphadenopathy. CARDIOVASCULAR: Regular rate and rhythm without murmurs, gallops, or rubs. RESPIRATORY: Breath sounds equal bilaterally. No accessory muscle use. GASTROINTESTINAL: Abdomen soft, non-tender, nondistended. Lap incision area WNL MUSCULOSKELETAL: No cyanosis, or edema. BACK: Nontender without obvious deformity. No CVA tenderness. Medications and IVs Current Medications Medications (Trade) Dose Ordered Sig/Lee Ann Route Start Time Stop Time Status Last Admin (NS Flush) 2 ml UNSCH PRN IVF 09/11/16 17:15 09/12/16 17:30 (NS Flush) 2 ml BID IVF 09/11/16 21:00 09/17/16 09:05 (Morphine Inj) 4 mg Q2H PRN IV PUSH 09/11/16 17:15 (Zofran Inj) 4 mg Q4H PRN IV 09/11/16 17:15 09/13/16 10:55 (Colace) 100 mg BID PO 09/11/16 21:00 2/6/17 09:04 (Benadryl) 25 mg Q6H PRN PO 09/11/16 17:15 (Lovenox Inj) 40 mg Q24H SQ 09/12/16 16:00 09/16/16 19:19 (Ofirmev Inj) 1,000 mg Q6H IV 09/11/16 20:00 09/17/16 09:04 (Norvasc) 10 mg DAILY PO 09/12/16 09:00 09/16/16 09:37 (Coreg) 6.25 mg BID PO 09/11/16 21:00 09/16/16 20:04 (Voltaren Dr) 75 mg DAILY PO 09/12/16 09:00 09/17/16 09:02 (Folate) 5 mg DAILY PO 09/12/16 09:00 09/17/16 09:04 (Plaquenil) 200 mg DAILY PO 09/12/16 09:00 09/17/16 09:04 (Prinivil) 10 mg DAILY PO 09/12/16 09:00 09/16/16 09:38 (Percocet 10-325 Mg) 1 tab Q4H PRN PO 09/11/16 17:15 09/16/16 20:04 (KCl) 10 meq DAILY PO 09/12/16 09:00 09/17/16 09:02 Alvimopan 12 mg 12 mg Q12HR PO 09/11/16 21:00 09/17/16 09:03 (Erythromycin Inj/NS Inj) 100 ml @ 100 mls/hr Q6H IV 09/13/16 14:00 09/17/16 09:04 (Mag-Al Plus Susp Liq) 30 ml Q6H PRN PO 09/13/16 12:15 09/13/16 12:58 (Protonix Inj) 40 mg DAILY IV PUSH 09/13/16 12:15 09/17/16 09:05 Assessment and Plan Problem List: (1) Adenocarcinoma of colon metastatic to liver Status: Acute Plan: S/P colon resection by Dr. Peralta. Incision sites look clean and dry. (2) Hypokalemia Status: Acute Plan: No labs done this AM will order for tomorrow AM (3) Hypertension Status: Chronic Plan: Continue current medication regimen. Blood pressure well controlled (4) GERD (gastroesophageal reflux disease) Status: Acute Plan: On Protonix. No complaints Assessment and Plan Assessment and plan discussed with Dr. Paulino. Awaiting clearance from [facility] for discharge. Problem Qualifiers (1) Hypertension: Qualified Code: I10 - Essential hypertension Fátima Bragg Sep 17, 2016 07:11
[2016-09-17 08:00] VITALS: BP 112/63; PULSE 74; RESP 17; TEMP 97.6; O2SAT 97
[2016-09-17] MEDS: CARVEDILOL 6.25 MG TAB PO SCH (09:00)
[2016-09-17] MEDS: LISINOPRIL 10 MG TAB PO SCH (09:00)
[2016-09-17] MEDS: POTASSIUM CHLORIDE 10 MEQ CONTROLLED RELEASE TAB PO SCH (09:02)
[2016-09-17] MEDS: DICLOFENAC SODIUM 75 MG DELAYED RELEASE TAB PO SCH (09:02)
[2016-09-17] MEDS: ALVIMOPAN 12 MG CAPSULE PO SCH (09:03)
[2016-09-17] MEDS: HYDROXYCHLOROQUINE SULFATE 200 MG TAB PO SCH (09:04)
[2016-09-17] MEDS: FOLIC ACID 1 MG TAB PO SCH (09:04)
[2016-09-17] MEDS: DOCUSATE SODIUM 100 MG CAP PO SCH (09:04)
[2016-09-17] MEDS: SODIUM CHLORIDE 0.9% FLUSH 5 ML FLUSH IVF SCH (09:05)
[2016-09-17] MEDS: PANTOPRAZOLE SODIUM 40 MG VIAL IV PUSH SCH (09:05)
[2016-09-17 12:00] VITALS: BP 112/65; PULSE 79; RESP 17; TEMP 97.3; O2SAT 97
[2016-09-17] MEDS: ENOXAPARIN SODIUM 40 MG/0.4 ML SYRINGE SQ SCH (14:36)
[2016-09-17] MEDS: oxyCODONE/ACETAMINOPHEN 10 MG/325 MG TAB PO PRN (14:36)
[2016-09-17 16:00] VITALS: BP 120/65; PULSE 76; RESP 17; TEMP 95.8; O2SAT 98
[2016-09-17] MEDS ORDERED: PERC10TA27 PO (16:46)
--- NOTE | 2016-09-17 16:49 | HHI.DS ---
Discharge Summary Admission Date Sep 11, 2016 at 11:01 Discharge Date: Sep 17, 2016 Admitting Diagnosis stage 4 colon cancer, ascending colon mass Procedures lap assisted ascending colectomy. Brief History 71 year old patient of Dr Samia Baker with stage 4 colon cancer, treated with chemorx with response. Ascending colon mass remains, plan for resection made. CBC/BMP: 09/13/16 2100 09/15/16 0505 Significant Findings Laboratory Tests Test 09/15/16 05:05 Creatinine 0.43 MG/DL (0.60-1.30) Calcium Level 8.1 MG/DL (8.5-10.1) PE at Discharge lungs are clear, heart sounds are regular. Abdomen is soft with normal bowel sounds. Incisions are healing well with minimal ecchymosis and no erythema or drainage. Extremities are non edematous. Hospital Course Pt admitted through [facility], taken to OR for surgery. He struggled initially postop with GERD, some emesis. He recovered and is now eating and having formed stool. He wants to go home. Pt Condition on Discharge: Stable Discharge Disposition: Discharge Home Discharge Instructions DIET: Follow Instructions for: As Tolerated, No Restrictions Activities you can perform: Shower Only-No Bath Activities to Avoid: Strenuous Activity David Peralta MD Sep 17, 2016 16:49
== END 2016-09-17 17:47 | disposition home or self-care (01) | DRG 330 ==
LOC: HSDI 09-11 11:01 → N07A 09-11 18:15
PROVIDERS: ADMIT Surgery Trauma Surgery; ATTEND Surgery Trauma Surgery
PROC: 0DNE4ZZ Release Large Intestine, Percutaneous Endoscopic Approach (ICD-10-PCS; 2016-09-11)
PROC: 0DTK0ZZ Resection of Ascending Colon, Open Approach (ICD-10-PCS; principal; 2016-09-11 13:41)
PROC: 0T9B70Z Drainage of Bladder with Drainage Device, Via Natural or Artificial Opening (ICD-10-PCS; 2016-09-12)
DX: C18.2 Malignant neoplasm of ascending colon (principal); C78.00 Secondary malignant neoplasm of unspecified lung; C78.7 Secondary malignant neoplasm of liver and intrahepatic bile duct; I82.402 Acute embolism and thrombosis of unspecified deep veins of left lower extremity; G62.9 Polyneuropathy, unspecified; J44.9 Chronic obstructive pulmonary disease, unspecified; I10 Essential (primary) hypertension; E78.2 Mixed hyperlipidemia; K21.9 Gastro-esophageal reflux disease without esophagitis; E87.6 Hypokalemia; R29.6 Repeated falls; R33.9 Retention of urine, unspecified; F10.10 Alcohol abuse, uncomplicated; F17.210 Nicotine dependence, cigarettes, uncomplicated; Z92.21 Personal history of antineoplastic chemotherapy; Z92.3 Personal history of irradiation
CPT/HCPCS: 71010; 80048; 80053; 83735; 85025; 86850; 86900; 86901; 88305; 88309; 93005; 94150; 94664; C1765; C9113; J0131; J0690; J1100; J1364; J1650; J1885; J2250; J2270; J2405; J2710; J3010; J3480; J7120; J7613